=== PATIENT | female | born 1965 | race Caucasian/White ===

== ENCOUNTER → 2021-04-10 | Day surgery (SDC) | payer BC ==
--- NOTE | 2021-04-10 13:18 | RAD REPORT ---
EXAM DESCRIPTION: US - Breast Core BX w/US Guidance - 04/10/2021 11:15 am CLINICAL HISTORY: ICD N63.20,Z80.3, R92.8 COMPARISON: February 2022 ultrasound TECHNIQUE: The risks, benefits alternatives to the procedure were explained to the patient and infor med consent obtained. Skin and subcutaneous tissues anesthetized with lidocaine. Under sonographic guidance, three 14 gauge vacuum assisted core biopsies of the mass within the inner left breast obtained. 2 centimeter specimens taken. Materials given to pathology. Subsequently a localizing clip was placed into the mass. Patient experienced no immediate complication IMPRESSION: Vacuum assisted core biopsies of the left breast mass
== END ==
LOC: DS 11:00
PROVIDERS: ATTEND Surgery
DX: N63.20 Unspecified lump in the left breast, unspecified quadrant (principal); R92.8 Other abnormal and inconclusive findings on diagnostic imaging of breast; Z80.3 Family history of malignant neoplasm of breast
CPT/HCPCS: 19083; 88304; 88305

== ENCOUNTER 2021-05-03 07:20 | Day surgery (SDC) | payer BC ==
[2021-04-28 14:38] LABS: Absolute Lymphocytes (CBC) 1.7 K/uL (0.7-4.9); Basophils % 0.8 % (0-1.3); Hematocrit 41.3 % (36.0-45.0); Lymphocytes % 36.6 % (15.3-44.8); MPV 9.4 fL (7.6-11.3); RBC Red Blood Cell Count 4.54 M/uL (3.86-4.86)
--- NOTE | 2021-04-28 14:48 | RAD REPORT ---
EXAM DESCRIPTION: RAD - Chest Pa And Lat (2 Views) - 04/28/2021 2:24 pm CLINICAL HISTORY: preop, pending left breast lumpectomy COMPARISON: None TECHNIQUE: Frontal and lateral views of the chest were obtained. FINDINGS: The lungs are clear. Heart size is normal and central vasculature is within normal limit s. No pleural effusion or pneumothorax seen. No acute bony finding noted. No aortic abnormality. IMPRESSION: No acute cardiopulmonary process.
[2021-04-28 19:00] LABS: Potassium 3.9 mmol/L (3.5-5.1)
[2021-05-03] MEDS ORDERED: Ringers Lactate 1,000 ML IV ONE (07:48)
[2021-05-03] MEDS: CEFAZOLIN/SWI 1gm 1 GM/10 ML SYR ONE ×3 (08:13→09:56)
[2021-05-03] MEDS ORDERED: ACETAMINOPHEN 500 MG TAB ONE (08:43)
[2021-05-03] MEDS ORDERED: CELECOXIB 100 MG CAPSULE ONE (08:43)
[2021-05-03] MEDS ORDERED: propofoL 200 MG/20 ML VIAL IV ONE (10:02)
[2021-05-03] MEDS ORDERED: FENTANYL CITR 100 MCG/2 ML ONE (10:03)
[2021-05-03] MEDS ORDERED: MIDAZOLAM HCL 2 MG/2 ML INJ ONE (10:03)
[2021-05-03] MEDS ORDERED: LIDOCAINE 1% MPF 5 ML VIAL ONE (10:03)
[2021-05-03] MEDS ORDERED: ONDANSETRON 4 MG/2 ML VIAL ONE (10:22)
[2021-05-03] MEDS ORDERED: KETOROLAC 30 MG/ML INJ ONE (10:22)
[2021-05-03] MEDS ORDERED: dexAMETHasone 10 MG/ML VIAL ONE (10:22)
--- NOTE | 2021-05-03 10:42 | P.BOP ---
Preoperative diagnosis: Left breast mass Postoperative diagnosis: same Primary procedure: Left breast lumpectomy Dairy Bacteriologist: LAWRENCE DUTTA (AUT[employer] STRAIGHTENER) Estimated blood loss: <10cc Specimen: mass Findings: breast mass solid/cystic compinents Anesthesia: General Complications: None Transferred to: Recovery Room Condition: Good
[2021-05-03 14:13] VITALS: BP 123/71; TEMP 97.8; O2SAT 100
--- NOTE | 2021-05-08 10:05 | OP ---
Date of Procedure: 05/03/2021 Surgeon: Willis Vega MD Continuous Pillowcase Cutter: Dana Nicholson. Preoperative Diagnosis: Left breast mass, palpable. Postoperative Diagnosis: Left breast mass, palpable. Procedure: Left breast lumpectomy. Estimated Blood Loss: Less than 10 mL. Specimen: Mass. Findings: Breast mass with solid and cystic component. Anesthesia: General plus local. Indication: This is the case of a female, who comes to us with a large mass in the left breast. The benefits, alternatives, and risks of lumpectomy were fully explained which include, but not limited to infection, bleeding, damage to adjacent structures, anesthesia complication, [place], even . She also understands this may not relieve her symptoms. She might need more than one surgical interventi on. She understood and signed a consent. The area of concern was marked with me and the patient in the holding room. Description Of Procedure: The patient was brought to the operating room and placed in supine positio n. Anesthesia was done without complication. A time-out was called. Left breast was prepped and dr aped in sterile fashion. Local anesthesia was applied followed by sharp incision of the skin. Incis ion was carried down to the breast tissue. This mass has a cystic and solid component around the are a. It goes all the way down to fascia of the muscle, does not involve the fascia of the muscle. The mass was completely excised, area was irrigated, and then proceeded to close the area with 3-0 chrom ic and nylon. Sponge counts and instrument counts were correct. Hemostasis was obtained before clos ure. The patient tolerated the procedure well. The patient was sent to Recovery in stable condition . Disposition: Home. Activity: As tolerated. No heavy lifting. Plan: Follow up in my office in 1 week. Call for appointment at [phone]. Keep area dry for 48 aaron rs, then may shower. Medications: See orders. HM/MODL Voice ID: [id number] Report ID: [id number]
== END 2021-05-03 12:35 | disposition home or self-care (01) ==
LOC: OR 07:20
PROVIDERS: ATTEND Surgery
PROC: 0HBU0ZX Excision of Left Breast, Open Approach, Diagnostic (ICD-10-PCS; 2021-05-03)
PROC: 0HBU0ZZ Excision of Left Breast, Open Approach (ICD-10-PCS; principal; 2021-05-03 08:30)
DX: L72.0 Epidermal cyst (principal); Z20.822 Contact with and (suspected) exposure to COVID-19
CPT/HCPCS: 93005; 85025; 80048; 36415; 88305; 71046; 19301; U0002; J2704; J2250; J3010; J1100; J0690; J7120; J2405